=== PATIENT | female | born 1950 | race Caucasian/White ===

== ENCOUNTER → 2016-10-11 | Outpatient (CLI) | payer MEDICARE ==
[2016-10-11 13:11] LABS: BUN 10 mg/dL (7-18)
[2016-10-11 13:20] LABS: GFR (ESTIMATED) 100 ML/MIN (59-)
== END ==
LOC: LAB 12:16
PROVIDERS: Nurse Practitioner Family
DX: E78.1 Pure hyperglyceridemia (principal); I10 Essential (primary) hypertension; E55.9 Vitamin D deficiency, unspecified